=== PATIENT | male | born 1965 | race Hispanic/Latino ===

== ENCOUNTER 2021-04-02 03:51 | Emergency (ER) | payer BC ==
[~2021-04-02] VITALS: Ht 165.1 cm; Wt 88.5 kg
[2021-04-02 05:07] VITALS: BP 181/95
== END 2021-04-02 05:00 | disposition home or self-care (01) ==
LOC: FSED 04:13
DX: L29.9 Pruritus, unspecified (principal); E11.65 Type 2 diabetes mellitus with hyperglycemia; I10 Essential (primary) hypertension
CPT/HCPCS: 80053; 85025; 99282